=== PATIENT | female | born 2000 | race African-American/Black ===

== ENCOUNTER 2022-06-15 08:08 | Observation (INO) ==
[2022-06-15] MEDS ORDERED: SODIUM CHLORIDE 0.9% 1,000 ML IV STA (08:30)
[2022-06-15] MEDS ORDERED: PROMETHAZINE 25 MG/1 ML VIAL IM STA (08:32)
[2022-06-15 08:56] LABS: Basophils # 0.1 10*3/uL (0.0-0.2); Basophils % 0.4 % (0.0-0.8); Eosinophils % 0.1 % (0.00-10.9); Hematocrit 40.6 VOL% (35.7-47.0); Hemoglobin 13.4 GM/DL (12.0-16.0); Immature Granulocytes % 0.4 %; Immature Granulocytes Absolute 0.07 #; Lymphocytes # 1.3 10*3/uL (1.4-4.0); Lymphocytes % 7.8 % (21.3-54.2); Mean Corpuscular Volume 83.9 FL (87-102); Mean Platelet Volume 10.4 FL (9.6-12.0); Monocytes # 1.7 10*3/uL (0.11-0.8); Monocytes % 10.1 % (1.7-12.7); Neutrophils % 81.2 % (38.7-73.9); Platelet Count 241 T/CUMM (130-400); Red Blood Count 4.84 MC/CUMM (3.8-5.5); Red Cell Distribution Width 13.3 % (9.3-17.3); White Blood Count 17.1 T/CUMM (4-12)
[2022-06-15 09:14] LABS: Albumin 3.3 G/DL (3.4-5.0); Bilirubin,Total 0.7 MG/DL (0.20-1.00); Osmolality,Calculated 270.8 MOS/KG (273-304); Potassium 3.3 MMOL/L (3.5-5.1); Total Protein 7.2 G/DL (6.4-8.2)
[2022-06-15 09:24] LABS: Anisocytosis 1+; Atypical Lymphocytes Few; Burr Cells Few; Lymphocytes 15 % (20-55); Macrocytosis Slight; Nucleated Red Blood Cells 1 /100 WBC (0-5); Platelet Estimate Normal; Total Cells Counted 100
[2022-06-15] MEDS ORDERED: cefTRIAXone 1,000 MG in SODIUM CHLORIDE 0.9% 100 ML IV STA (10:18)
[2022-06-15 11:01] LABS: Mucus,Urine Moderate /LPF (Occasional); Squamous Epithelial Cell,Urine Occasional /HPF (0-10)
[2022-06-15 11:02] LABS: Glucose,Urine (UA) Negative (Negative); Ketones,Urine 80 mg/dL (Negative); Nitrite,Urine Negative (Negative); Protein,Urine Trace mg/dL (Negative); Urine Appearance Clear (Clear); Urine Color Yellow (Yellow); Urine pH 6.5 (4.5-8.0)
[2022-06-15 11:03] LABS: Bilirubin,Urine Negative (Negative); Blood, Urine Moderate mg/dL (Negative); Urine Urobilinogen 0.2 eU/dL (<2.0)
[2022-06-15] MEDS ORDERED: HYDROmorphone 1 MG/1 ML SYRINGE ONE (11:19)
[2022-06-15] MEDS ORDERED: HYDROmorphone 1 MG/1 ML SYRINGE IV STA (13:26)
[2022-06-15] MEDS ORDERED: IBUPROFEN 600 MG TABLET ONE (13:30)
[2022-06-15] MEDS ORDERED: IBUPROFEN 600 MG TABLET PO STA (13:33)
[2022-06-15] MEDS ORDERED: POTASSIUM CHLORIDE 20 MEQ TABLET PO ONE (14:37)
[2022-06-15] MEDS: ENOXAPARIN 40 MG/0.4 ML SYRINGE SUBCUT SCH (15:46)
[2022-06-15] MEDS: metroNIDAZOLE INJ 500 MG/100 ML PREMIX IV SCH (15:47)
[2022-06-15 15:54] LABS: RBC Wet Mount Few /HPF
[2022-06-15 15:55] LABS: Bacteria Wet Mount Few /HPF; Clue Cells Few /HPF (None Seen); Epithelial Cell Wet Mount Moderate /HPF (Few/HPF); Trichomonas Wet Mount Moderate /HPF (None Seen); WBC Wet Mount Many /HPF; Yeast Wet Mount None Seen /HPF (None Seen)
[2022-06-16] MEDS: HYDROmorphone 1 MG/1 ML SYRINGE IV PRN ×3 (02:13→15:13)
[2022-06-16] MEDS: SODIUM CHLORIDE 0.9% 1,000 ML IV SCH ×2 (02:13→07:51)
[2022-06-16] MEDS: metroNIDAZOLE INJ 500 MG/100 ML PREMIX IV SCH ×2 (03:55→15:17)
[2022-06-16] MEDS: ACETAMINOPHEN 325 MG TABLET PO PRN (03:56)
[2022-06-16 05:53] LABS: Basophils # 0.1 10*3/uL (0.0-0.2); Basophils % 0.4 % (0.0-0.8); Eosinophils # 0.1 10*3/uL (0.0-0.87); Eosinophils % 0.6 % (0.00-10.9); Hematocrit 38.5 VOL% (35.7-47.0); Hemoglobin 12.7 GM/DL (12.0-16.0); Immature Granulocytes % 0.3 %; Immature Granulocytes Absolute 0.04 #; Lymphocytes # 1.4 10*3/uL (1.4-4.0); Lymphocytes % 10.1 % (21.3-54.2); Mean Corpuscular Volume 85.9 FL (87-102); Mean Platelet Volume 10.9 FL (9.6-12.0); Monocytes # 1.7 10*3/uL (0.11-0.8); Monocytes % 12.3 % (1.7-12.7); Neutrophils % 76.3 % (38.7-73.9); Platelet Count 229 T/CUMM (130-400); Red Blood Count 4.48 MC/CUMM (3.8-5.5); Red Cell Distribution Width 13.2 % (9.3-17.3)
[2022-06-16 06:08] LABS: Calcium 8.6 MG/DL (8.5-10.1); Potassium 3.6 MMOL/L (3.5-5.1)
[2022-06-16] MEDS: PANTOPRAZOLE 40 MG TABLET PO SCH (09:44)
[2022-06-16] MEDS: cefTRIAXone 1,000 MG in SODIUM CHLORIDE 0.9% 100 ML IV SCH (09:44)
[2022-06-16] MEDS: POLYETHYLENE GLYCOL POWDER 17 GM PACK PO SCH (09:45)
[2022-06-16] MEDS: ONDANSETRON 4 MG/2 ML VIAL IV PRN ×2 (11:35→15:12)
[2022-06-16] MEDS: DOXYCYCLINE HYCLATE INJ 100 MG in SODIUM CHLORIDE 0.9% 100 ML IV SCH (14:00)
[2022-06-16] MEDS: ENOXAPARIN 40 MG/0.4 ML SYRINGE SUBCUT SCH (15:12)
[2022-06-16] MEDS: MAGNESIUM HYDROXIDE SUSP 30 ML UDCUP PO PRN (15:12)
[2022-06-17] MEDS: SODIUM CHLORIDE 0.9% 1,000 ML IV SCH ×3 (01:47→16:12)
[2022-06-17] MEDS: metroNIDAZOLE INJ 500 MG/100 ML PREMIX IV SCH ×2 (03:12→16:12)
[2022-06-17] MEDS: HYDROmorphone 1 MG/1 ML SYRINGE IV PRN (03:14)
[2022-06-17 05:09] LABS: Basophils # 0.1 10*3/uL (0.0-0.2); Basophils % 0.7 % (0.0-0.8); Eosinophils # 0.2 10*3/uL (0.0-0.87); Hematocrit 36.1 VOL% (35.7-47.0); Hemoglobin 11.7 GM/DL (12.0-16.0); Immature Granulocytes % 0.4 %; Immature Granulocytes Absolute 0.04 #; Lymphocytes # 2.5 10*3/uL (1.4-4.0); Lymphocytes % 27.9 % (21.3-54.2); Mean Corpuscular HGB Conc 32.4 GM/DL (32-36); Mean Corpuscular Volume 86.6 FL (87-102); Mean Platelet Volume 10.7 FL (9.6-12.0); Monocytes # 1.5 10*3/uL (0.11-0.8); Monocytes % 16.9 % (1.7-12.7); Neutrophils % 52.1 % (38.7-73.9); Platelet Count 224 T/CUMM (130-400); Red Blood Count 4.17 MC/CUMM (3.8-5.5); Red Cell Distribution Width 13.2 % (9.3-17.3)
[2022-06-17 05:25] LABS: Calcium 8.4 MG/DL (8.5-10.1); Osmolality,Calculated 271.7 MOS/KG (273-304); Potassium 3.6 MMOL/L (3.5-5.1)
[2022-06-17 06:27] LABS: Eosinophils 2 % (0-10); Hypochromia Slight; Lymphocytes 29 % (20-55); Microcytosis Slight; Platelet Estimate Adequate; Total Cells Counted 100
[2022-06-17] MEDS ORDERED: SODIUM PHOSPHATE ENEMA 133 ML BOTTLE RECTAL ONE (09:22)
[2022-06-17] MEDS: POLYETHYLENE GLYCOL POWDER 17 GM PACK PO SCH (09:23)
[2022-06-17] MEDS: cefTRIAXone 1,000 MG in SODIUM CHLORIDE 0.9% 100 ML IV SCH (09:24)
[2022-06-17] MEDS: PANTOPRAZOLE 40 MG TABLET PO SCH (09:25)
[2022-06-17] MEDS: DOXYCYCLINE HYCLATE INJ 100 MG in SODIUM CHLORIDE 0.9% 100 ML IV SCH (11:29)
[2022-06-17] MEDS: MAGNESIUM HYDROXIDE SUSP 30 ML UDCUP PO PRN (11:36)
[2022-06-17] MEDS: ENOXAPARIN 40 MG/0.4 ML SYRINGE SUBCUT SCH (16:11)
[2022-06-17] MEDS: ACETAMINOPHEN 325 MG TABLET PO PRN (20:58)
[2022-06-18] MEDS: SODIUM CHLORIDE 0.9% 1,000 ML IV SCH ×2 (01:15→05:58)
[2022-06-18] MEDS: metroNIDAZOLE INJ 500 MG/100 ML PREMIX IV SCH (03:54)
[2022-06-18 07:46] VITALS: BP 127/73
[2022-06-18] MEDS: PANTOPRAZOLE 40 MG TABLET PO SCH (08:13)
[2022-06-18] MEDS: ACETAMINOPHEN 325 MG TABLET PO PRN (08:13)
[2022-06-18] MEDS: POLYETHYLENE GLYCOL POWDER 17 GM PACK PO SCH (08:13)
== END 2022-06-18 08:28 | disposition home or self-care (01) ==
LOC: N.EDINP 08:08 → N.ED 08:08 → SUATTDRO 14:31 → N.5E 15:56
PROVIDERS: ADMIT Internal Medicine; ATTEND Internal Medicine